=== PATIENT | female | born 1955 | race Caucasian/White ===

== ENCOUNTER → 2017-06-15 | Outpatient (CLI) | payer SELFPAY ==
[~2017-06-15] MED LIST: AMIT10 PO; BENZ100A PO; BUPR150ER; BUPR150ERA PO; BUPR75; BUPR75 PO; CELE100; CELE100 PO; CEPH500 PO; CHOL10002 PO; Cyclobenzaprine5 MG; DHEA PO; DICL25ER PO; DULO30 PO; DULO60 PO; DULOXETINE; DULOXETINE HCL20 MG; ESTR.05PBW TOP; GABA100; MELO7.5 PO; MULVITMINF PO; OXYC10TA19 PO; PANT20 PO; PROG100 PO; Pseudoephedrine30 MG PO; TRAZ100 PO; TRAZ50 PO; VENL75
== END ==
LOC: LAB 11:25
DX: R10.2 Pelvic and perineal pain (principal)
CPT/HCPCS: 87086

== ENCOUNTER 2017-09-07 17:10 | Emergency (ER) | payer OTHER ==
[~2017-09-07] VITALS: Ht 170.2 cm; Wt 83.0 kg
[~2017-09-07 17:10] MED LIST changes: -BENZ100A PO; -BUPR150ER; -BUPR75; -CELE100; -Cyclobenzaprine5 MG; -DULOXETINE; -DULOXETINE HCL20 MG; -GABA100; -Pseudoephedrine30 MG PO; -TRAZ100 PO
[2017-09-07] MEDS ORDERED: CELE100 (17:29)
[2017-09-07] MEDS ORDERED: GABA100 (17:29)
[2017-09-07] MEDS ORDERED: BUPR150ER (17:29)
[2017-09-07] MEDS ORDERED: Cyclobenzaprine5 MG (17:29)
[2017-09-07] MEDS ORDERED: BUPR75 (17:29)
[2017-09-07] MEDS ORDERED: DULOXETINE HCL20 MG (17:29)
[2017-09-07 17:37] LABS: BASOPHILS ABSOLUTE AUTO 0.03 K/mm3 (0.00-0.23); BASOPHILS PERCENT AUTO 1 % (0-2); EOSINOPHILS ABSOLUTE AUTO 0.12 K/mm3 (0.00-0.68); EOSINOPHILS PERCENT AUTO 2 % (0-6); Hematocrit 40.5 % (33.0-51.0); Hemoglobin 13.3 g/dL (11.5-16.0); IMMATURE GRAN ABSOLUTE AUTO 0.01 K/mm3 (0.00-0.10); IMMATURE GRAN PERCENT AUTO 0 % (0-1); LYMPHOCYTES ABSOLUTE AUTO 2.25 K/mm3 (0.84-5.20); LYMPHOCYTES PERCENT AUTO 45 % (21-46); MONOCYTES ABSOLUTE AUTO 0.42 K/mm3 (0.16-1.47); MONOCYTES PERCENT AUTO 8 % (4-13); Mean Corpuscular HGB 27.5 pg (26.0-34.0); Mean Corpuscular HGB Conc 32.8 g/dL (31.5-36.5); Mean Corpuscular Volume 84 fL (80-100); Mean Platelet Volume 11.1 fL (9.1-12.4); NEUTROPHILS ABSOLUTE AUTO 2.22 K/mm3 (1.96-9.15); NEUTROPHILS PERCENT AUTO 44 % (41-73); Platelet Count 146 K/mm3 (150-400); RDW Coefficient Variation 13.1 % (11.7-14.2); RDW Standard Deviation 39.9 fL (35.1-46.3); Red Blood Cell Count 4.83 M/mm3 (3.80-5.20); White Blood Cell Count 5.05 K/mm3 (4.00-11.30)
[2017-09-07 17:59] LABS: Albumin, Blood 4.1 g/dL (3.4-5.0); Albumin/Globulin Ratio 1.2 (0.8-1.8); Bilirubin, Total 0.3 mg/dL (0.1-1.0); Bun/Creatinine Ratio 21.2 (12.0-20.0); Creatinine, Blood 1.04 mg/dL (0.40-1.00); Globulin, Blood 3.3 g/dL (2.2-4.0); Potassium, Blood 3.9 mmol/L (3.5-5.5); Total Protein, Blood 7.4 g/dL (6.4-8.2)
== END 2017-09-07 18:37 | disposition home or self-care (01) ==
LOC: ER 17:10
PROVIDERS: Physician Assistant
DX: N13.2 Hydronephrosis with renal and ureteral calculous obstruction (principal); Z88.0 Allergy status to penicillin; Z88.5 Allergy status to narcotic agent; Z79.899 Other long term (current) drug therapy; Z87.891 Personal history of nicotine dependence
CPT/HCPCS: 36415; 74176; 80053; 81000; 85025; 99284

== ENCOUNTER 2018-11-05 05:02 | Emergency (ER) | payer MEDICARE, OTHER ==
[~2018-11-05] VITALS: Ht 170.2 cm; Wt 82.5 kg
[~2018-11-05 05:02] MED LIST changes: +BUPR150ER; +BUPR75; +CELE100; +Cyclobenzaprine5 MG; +DULOXETINE HCL20 MG; +GABA100
[2018-11-05] MEDS ORDERED: TRAZ100 PO (05:45)
[2018-11-05] MEDS ORDERED: DULOXETINE (05:45)
[2018-11-05] MEDS ORDERED: Pseudoephedrine30 MG PO (06:16)
[2018-11-05] MEDS ORDERED: BENZ100A PO (06:16)
== END 2018-11-05 06:57 | disposition home or self-care (01) ==
LOC: ER 05:02
DX: J06.9 Acute upper respiratory infection, unspecified (principal); Z87.891 Personal history of nicotine dependence; Z88.0 Allergy status to penicillin; Z88.5 Allergy status to narcotic agent; Z79.899 Other long term (current) drug therapy
CPT/HCPCS: 71046; 93005; 93010; 99283-25